=== PATIENT | female | born 1975 | race Caucasian/White ===

== ENCOUNTER → 2018-03-26 13:57 | Outpatient (CLI) | payer MEDICAID | END | disposition home or self-care (01) | LOC: D.MRI 03-25 09:44 | DX: M25.561 Pain in right knee (principal) ==

== ENCOUNTER 2018-07-22 22:48 | Emergency (ER) | payer MEDICAID ==
[~2018-07-22] VITALS: Ht 154.9 cm; Wt 86.4 kg
[2018-07-22 22:51] VITALS: Ht 154.9 cm; Wt 86.4 kg
[2018-07-22] MEDS ORDERED: METOPROLOL TART25 MG PO (22:53)
[2018-07-22] MEDS ORDERED: ZOLOFT50 MG PO (22:53)
[2018-07-22] MEDS ORDERED: BENADRYL25 MG PO (23:26)
[2018-07-22 23:37] VITALS: BP 157/98
== END 2018-07-22 23:37 | disposition home or self-care (01) ==
LOC: D.ER 22:48
DX: T63.2X1A Toxic effect of venom of scorpion, accidental (unintentional), initial encounter (principal); Y92.019 Unspecified place in single-family (private) house as the place of occurrence of the external cause; I10 Essential (primary) hypertension; F17.200 Nicotine dependence, unspecified, uncomplicated

== ENCOUNTER 2019-04-03 09:40 | Day surgery (SDC) | payer MEDICAID ==
[2019-04-02 13:48] LABS: HEMATOCRIT 40.4 % (36.0-48.0); HEMOGLOBIN 13.4 g/dL (12-16); MCHC 33.2 g/dL (31.0-37.0); MCV 96.4 fL (80.0-100.0); MEAN PLATELET VOLUME 9.9 fL (7.4-10.4); RBC 4.19 10x6/uL (4.00-5.40); RDW 13.5 % (11.5-14.5); WBC 13.1 10x3/uL (4.8-10.8)
[2019-04-02 14:06] LABS: CALC OSMOLALITY 283 mosm/kg (275-300); CALCIUM 9.2 mg/dL (8.5-10.1); CARBON DIOXIDE 30.3 mmol/L (21.0-32.0); CHLORIDE - SERUM 106 mmol/L (98-107); CREATININE - SERUM 0.7 mg/dL (0.6-1.3); GLUCOSE 101 mg/dL (74-106); POTASSIUM - SERUM 3.5 mmol/L (3.5-5.1); SODIUM 142 mmol/L (136-145); UREA NITROGEN 15 mg/dL (7-18); eGFR NON AFRICAN AMERICAN > 90 mL/min (90-120)
[~2019-04-03] VITALS: Ht 154.9 cm; Wt 81.6 kg
--- NOTE | ~2019-04-03 | OP ---
PATIENT NAME: MISTI ANN MEDICAL RECORD: [id number] :75 LOCATION:D.OPS ADMISSION DATE: SURGEON: NAUN MARRERO DATE OF OPERATION: 04/03/2019 SURGEON: Naun Marrero DPM PREOPERATIVE DIAGNOSES: 1. Hammertoe, third toe, left foot. 2. Ingrown toenail, third toe, left foot. POSTOPERATIVE DIAGNOSES: 1. Hammertoe, third toe, left foot. 2. Ingrown toenail, third toe, left foot. PROCEDURE: 1. Arthrodesis of the third proximal interphalangeal joint, third toe, left foot. 2. Total permanent chemical matrixectomy third toe, left foot. ANESTHESIA: General. HEMOSTASIS: Pneumatic ankle tourniquet inflated to 250 mmHg. ESTIMATED BLOOD LOSS: Minimal. MATERIALS: One 2.5 mm headless [employer] screw. INJECTABLES: A 10 cc of 0.25% Marcaine plain. The patient has longstanding history of pain associated with both hammertoe deformities of the third toe, left foot as well as an ingrown toenail on the same toe. We have discussed the proposed procedure. All risks and benefits were discussed. Complications were reviewed. All questions were answered. She was appropriately consented for the above-mentioned procedure. DESCRIPTION OF PROCEDURE: The patient was brought in the operating room and placed on the operating table in supine position. A timeout was called with Dr. Marrero, who identified the patient, the surgery site, and the surgery to be performed. Once appropriate anesthesia was obtained, the foot was prepped and draped in the usual aseptic manner. The pneumatic ankle tourniquet was inflated to 250 mmHg on the well-padded left ankle. Attention was directed to the dorsal aspect of the third toe of the left foot where a 3-cm linear incision was made. This incision was carried deep to soft tissue with care being taken to retract all vital neurovascular structures. All bleeders were cauterized along the way. The extensor tendon was then sharply transected at the level of the proximal interphalangeal joint. All soft tissue attachments were then reflected from the head of the proximal phalanx, thus revealing the proximal interphalangeal joint. Utilizing a sagittal saw, the head of the proximal phalanx was resected and all cartilage was removed from the base of the middle phalanx. Next, the K-wire was driven from proximal to distal through the middle phalanx exiting the toe and was then retrograded into the OPERATIVE REPORT [id number] MISTI ANN proximal phalanx. Proper placement of the K-wire was confirmed via C-arm. Next, utilizing ball truing machine operator's recommended technique, one 2.5-mm screw was placed across the proximal interphalangeal joint. Placement of the screw was confirmed via the C-arm. The surgical site was then irrigated with copious amounts of normal sterile saline via bulb syringe. The extensor tendon was then reapproximated and coapted using 3-0 Vicryl. The subq was then reapproximated and coapted using 3-0 Vicryl. The skin was then reapproximated and coapted using 4-0 nylon. PROCEDURE 2: Total permanent chemical matrixectomy third toe, left foot. Attention was directed to the third toe of the left foot. The nail was then loosened utilizing a combination of hemostat and a spatula. Once the nail was completely avulsed, The matrix was exposed. The nail groove was then curetted free of any debris and 3 times 20-second sodium hydroxide applications were utilized to obliterate the nail root. The surgical site was then flushed with copious amounts of normal sterile saline. The pneumatic ankle tourniquet was deflated and capillary refill time was immediate to the left third toe. A dressing consisting of Betadine impregnated ointment 4 x 4's, Kerlix, and Brady bandage were applied to the left foot. The patient tolerated the procedure and anesthesia well. She left the operating room with vital signs stable and capillary refill time intact. The patient will be discharged home with instructions to ice and elevate the left foot. She was provided with prescriptions for Vicodin 5/325, Phenergan 25 mg, and ibuprofen 800 mg. She was also provided with my cell phone number for any after hour difficulties and there were no complications with this procedure. TRANSINT:[id number] Voice Confirmation ID: [id number] DOCUMENT ID: [id number] NAUN MARRERO CC: [id number] DICTATION DATE: 04/03/19 1445 SOCIAL WORKER DELINQUENCY PREVENTION: 04/03/19 150[id number] [place] [address]
[~2019-04-03 09:40] MED LIST: BENADRYL25 MG PO; METOPROLOL TART50 MG PO; ZOLOFT50 MG PO
[2019-04-03 11:17] VITALS: BP 137/71; Ht 154.9 cm; Wt 81.6 kg
--- NOTE | 2019-04-03 15:15 | NUR ---
PATIENT AMBULATES TO BATHROOM USING CRUTCHES WITH STAND-BY ASSIST WITHOUT DIZZINESS. PIV DC'D WITH TIP INTACT. DISCHARGE INSTRUCTIONS REVIEWED WITH PATIENT. 1520 DISCHARGED HOME VIA WHEELCHAIR TO PRIVATE VEHICLE WITH MOTHER
== END 2019-04-03 15:20 | disposition home or self-care (01) ==
LOC: D.OPS 09:40
PROVIDERS: Anesthesiology; ATTEND Podiatrist
DX: M20.42 Other hammer toe(s) (acquired), left foot (principal); L60.0 Ingrowing nail; Z01.812 Encounter for preprocedural laboratory examination

== ENCOUNTER → 2020-02-05 14:39 | Outpatient (CLI) | payer MEDICAID ==
[2019-04-03 11:17] VITALS: BMI 34.0
== END | disposition home or self-care (01) ==
LOC: D.MRI 14:39
PROVIDERS: ATTEND Clinical Nurse Specialist Family Health
DX: M25.561 Pain in right knee (principal)

== ENCOUNTER 2020-03-29 10:20 | Day surgery (SDC) | payer MEDICAID ==
[2020-03-26 09:36] LABS: HEMATOCRIT 41.9 % (36.0-48.0); HEMOGLOBIN 13.1 g/dL (12-16); MCHC 31.3 g/dL (31.0-37.0); MCV 99.3 fL (80.0-100.0); MEAN PLATELET VOLUME 9.7 fL (7.4-10.4); RBC 4.22 10x6/uL (4.00-5.40); RDW 13.2 % (11.5-14.5); WBC 12.3 10x3/uL (4.8-10.8)
[2020-03-26 09:43] LABS: CALC OSMOLALITY 280 mosm/kg (275-300); CARBON DIOXIDE 25.8 mmol/L (21.0-32.0); CHLORIDE - SERUM 106 mmol/L (98-107); CREATININE - SERUM 0.7 mg/dL (0.6-1.3); GLUCOSE 162 mg/dL (74-106); POTASSIUM - SERUM 4.1 mmol/L (3.5-5.1); SODIUM 139 mmol/L (136-145); UREA NITROGEN 10 mg/dL (7-18); eGFR NON AFRICAN AMERICAN > 90 mL/min (90-120)
[~2020-03-29] VITALS: Ht 154.9 cm; Wt 86.2 kg
--- NOTE | ~2020-03-29 | OP ---
PATIENT NAME: MISTI ANN MEDICAL RECORD: [id number] :75 LOCATION:D.OPS ADMISSION DATE: SURGEON: KLARISSA AVILA MD DATE OF OPERATION: 03/29/2020 PREOPERATIVE DIAGNOSIS: Lateral meniscus tear of the right knee. POSTOPERATIVE DIAGNOSIS: Lateral meniscus tear of the right knee. PROCEDURE: Arthroscopic partial lateral meniscectomy. SURGEON: Klarissa Avila MD ANESTHESIA: General. INTRAOPERATIVE COMPLICATIONS: None. SUMMARY OF PATHOLOGIC FINDINGS: Upon entering the patient's knee, she was found to have pristine cartilaginous surface with a complex tear of the posterior horn of the lateral meniscus of the right knee. OPERATIVE SUMMARY IN DETAIL: After obtaining the appropriate preoperative orthopedic surgery consent as well as anesthetic consultation, evaluation and clearance, the patient was brought to the operating room and placed on the table in supine position. After adequate general laryngeal mask airway was administered, tourniquet was placed about the proximal aspect of the right lower extremity. Right lower extremity was prepped in routine sterile fashion. The leg was elevated and exsanguinated, tourniquet inflated to 350 mmHg. Appropriate timeout was taken and agreed upon by all. Given the patient's unique identifiers, routine inferolateral portal was created followed by superior medial and inferior medial portal. Diagnostic arthroscopy showed the patient to have a lateral meniscus tear as expected by the MRI and previous examination. Combination of meniscotomes as well as an arthroscopic resector were utilized to debride the lateral meniscal tear back to stable lateral meniscal elements. There were no capsular tears and the patient's meniscus did not sublux beyond the equator. Having completed this, arthroscopy portals were closed in routine interrupted fashion using 4-0 Prolene. The knee was insufflated with 80 mg of Depo-Medrol and 30 cc of 0.25% Marcaine with epinephrine. Sterile dressings were applied. Tourniquet was deflated. The patient was awakened and taken to the recovery room in stable condition. All final needle and sponge counts were correct. TRANSINT:[id number] Voice Confirmation ID: [id number] DOCUMENT ID: [id number] KLARISSA AVILA MD CC: [id number] DICTATION DATE: 04/02/20 0800 PUBLIC RELATIONS: 04/02/[address] [facility] 03/29/20 [place] [address]
[~2020-03-29 10:20] MED LIST changes: +VITAMIN B-121000 MCG IM
[2020-03-29 10:56] VITALS: BP 123/63; Ht 154.9 cm; Wt 86.2 kg
--- NOTE | 2020-03-29 11:06 | NUR ---
1102 PT STATES THAT SHE CHRONICALLY RUNS A HIGH WBC AND SEES A REFRIGERATION OPERATOR FOR THIS CONDITION. SHE SAID IT HAS TO DO WITH HER BONE MARROW AND HER REFRIGERATION OPERATOR HAS TOLD HER THAT IT IS PRODUCING "GOOD CELLS"
[2020-03-29] MEDS ORDERED: HYDROCODON-ACE1 EA10 PO ×2 (14:52→18:03)
--- NOTE | 2020-03-29 15:57 | NUR ---
PT IS C/O PAIN 5/10. ADMINISTERED PAIN MED PO PER ORDER. PT IS ABLE TO TOLERATE FULL LIQUID DIET AT THIS TIME. DENIES OTHER NEEDS AT THIS TIME. WILL CONTIUE TO MONITOR.
--- NOTE | 2020-03-29 16:27 | NUR ---
DC INSTRUCTIONS GIVEN TO PT. STATES UNDERSTANDING. DC'D IV CATH FULLY INTACT. PT VOIDED. SCAT BUS WILL CYTOLOGY MANAGER PT FROM HOSPITAL.
--- NOTE | 2020-03-29 16:44 | NUR ---
PT LEFT UNIT VIA WC AT 1534
== END 2020-03-29 16:34 | disposition home or self-care (01) ==
LOC: D.OPS 10:20 → D.PAN 15:00 → D.OPS 16:00
PROVIDERS: Anesthesiology; ATTEND Orthopaedic Surgery
DX: S83.281A Other tear of lateral meniscus, current injury, right knee, initial encounter (principal); X58.XXXA Exposure to other specified factors, initial encounter; E11.9 Type 2 diabetes mellitus without complications; M25.561 Pain in right knee